=== PATIENT | female | born 1985 | race Two or more races ===

== ENCOUNTER 2024-08-20 12:27 | Emergency (ER) | payer OTHER ==
[~2024-08-20] VITALS: Ht 154.9 cm; Wt 84.8 kg
[2024-08-20] MEDS ORDERED: TRAMADOL HCL 50 MG TABLET PO ONE (13:30)
[2024-08-20] MEDS ORDERED: ASPIRIN 81 MG TABLET.EC PO ONE (13:30)
[2024-08-20 14:12] LABS: HEMATOCRIT 38.1 % (36.0-45.00); HEMOGLOBIN 12.8 g/dL (12.0-15.00); MEAN CELL VOLUME 89.6 fL (80.00-100.00); MEAN CORPUSCULAR HEMOGLOBIN 30.1 pg (27.00-32.0); MEAN CORPUSCULAR HGB CONC 33.6 g/dl (32.0-36.0); PLATELET COUNT 334 K/uL (150-450); RED BLOOD COUNT 4.26 M/uL (4.00-6.00); RED CELL DISTRIBUTION WIDTH 14.7 % (11.5-14.5)
[2024-08-20 14:33] LABS: proBNP 55 pg/mL (0-51.9)
[2024-08-20 14:35] LABS: ALBUMIN 3.4 gm/dL (3.4-5.0); ALKALINE PHOSPHATASE 107 U/L (50-136); ALT/SGPT 17 U/L (12-78); ANION GAP 7 (10.0-20.0); AST/SGOT 12 U/L (15-37); BILIRUBIN TOTAL 0.33 mg/dL (0.3-1.2); BLOOD UREA NITROGEN 10 mg/dL (7-18); BUN CREA RATIO 16 (7.0-25.0); CALCIUM 8.7 mg/dL (8.5-10.1); CARBON DIOXIDE 27 mEq/L (21-32); CHLORIDE 109 mmol/L (98-107); CREATININE SERUM 0.61 mg/dL (0.55-1.02); GFR 109.19; GLOBULINA 4.3 G/DL (2.4-3.5); GLUCOSE FASTING 82 mg/dL (65-100); OSMOLALITY SERUM 276 MOSM/KG (275-295); POTASSIUM 3.97 mEq/L (3.5-5.1); SODIUM 139 mmol/L (136-145); TOTAL PROTEIN 7.7 gm/dL (6.4-8.2); TROPONIN I hs < 3.0 PG/ML (42.2-82.3)
[2024-08-20 14:36] LABS: CKMB < 1.0 NG/ML (0.5-3.6)
[2024-08-20 14:42] LABS: D DIMER 0.8 MG/L
[2024-08-20] MEDS ORDERED: ENOXAPARIN SODIUM 40 MG/0.4 ML SYRINGE SUBCUTANEO ONE (16:00)
== END 2024-08-20 18:49 | disposition home or self-care (01) ==
LOC: ER 12:28
PROVIDERS: General Practice
DX: R07.9 Chest pain, unspecified (principal)
CPT/HCPCS: 36415; 71045; 71260; 93005; Q9965